=== PATIENT | female | born 1955 | race Two or more races ===

== ENCOUNTER → 2023-10-20 09:10 | Outpatient (REF) | payer OTHER, SELFPAY | LOC: HWWDC 09:10 | PROVIDERS: ATTENDING PHYSICIAN Family Medicine | DX: Z12.31 Encounter for screening mammogram for malignant neoplasm of breast (principal) | CPT/HCPCS: 77063; 77067 ==

== ENCOUNTER → 2025-01-09 09:57 | Outpatient (REF) | payer OTHER, SELFPAY | LOC: HWWDC 09:57 | PROVIDERS: ATTENDING PHYSICIAN Family Medicine | DX: Z12.31 Encounter for screening mammogram for malignant neoplasm of breast (principal) | CPT/HCPCS: 77063; 77067 ==

== ENCOUNTER → 2025-01-18 09:21 | Outpatient (REF) | payer OTHER, SELFPAY | LOC: HWRAD 09:21 | PROVIDERS: ATTENDING PHYSICIAN Family Medicine | DX: M85.80 Other specified disorders of bone density and structure, unspecified site (principal) | CPT/HCPCS: 77080 ==